=== PATIENT | male | born 1955 | race Caucasian/White ===

== ENCOUNTER 2018-02-17 08:07 | Day surgery (SDC) | payer BC ==
[2018-02-15 10:25] VITALS: BMI 30.2
[~2018-02-17 08:07] MED LIST: LACTATED RINGERS 1,000 ML IV SCH
[2018-02-17 08:40] VITALS: PULSE 51; RESP 16; TEMP 97.4
[2018-02-17] MEDS ORDERED: LIDOCAINE 1% 20 ML VIAL (10MG/ML) FOR IV START INTRADERMA ONE (08:42)
[2018-02-17] MEDS ORDERED: PROPOFOL 10 MG/ML 20 ML VIAL IV ONE (08:45)
--- NOTE | 2018-02-17 08:50 | P.GSHP ---
History of Present Illness H&P Date: 02/17/18 Chief Complaint: History of colon polyps This is a 62-year-old male who presents today for colonoscopy. Patient has a previous history of colon polyps. He denies any significant GI complaints. Past Medical History Past Medical History: GERD/Reflux, Hyperlipidemia, Hypertension, Myocardial Infarction ([place]), Sleep Apnea/CPAP/BIPAP Additional Past Medical History / Comment(s): uses CPAP, seasonal allergies, HX OF POLYPS Last Myocardial Infarction Date:: 2012 History of Any Multi-Drug Resistant Organisms: None Reported Past Surgical History: Coronary Bypass/CABG, Heart Catheterization Additional Past Surgical History / Comment(s): single bypass, valve replacement Past Anesthesia/Blood Transfusion Reactions: No Reported Reaction Smoking Status: Former smoker - Past Family History Brother(s) Family Medical History: Cancer Additional Family Medical History / Comment(s): LUNG Mother Family Medical History: No Reported History Medications and Allergies Home Medications Medication Instructions Recorded Confirmed Type Aspirin 162 mg PO DAILY 12/26/14 02/15/18 History Atorvastatin [Lipitor] 40 mg PO DAILY 12/26/14 02/15/18 History Citalopram Hydrobromide [CeleXA] 20 mg PO DAILY 12/26/14 02/15/18 History Famotidine [Pepcid] 40 mg PO HS 12/26/14 02/15/18 History Vitamin B Complex 1 each PO WE 12/26/14 02/15/18 History Amlodipine 0.5 tab PO QAM 02/15/18 History Folic Acid 1 mg PO DAILY 02/15/18 02/15/18 History Inhaler 2 puff INHALATION Q6H PRN 02/15/18 02/17/18 History Losartan [Cozaar] 50 mg PO HS 02/15/18 02/15/18 History Allergies Allergy/AdvReac Type Severity Reaction Status Date / Time No Known Allergies Allergy Verified 02/17/18 08:33 Surgical - Exam Vital Signs Temp Pulse Resp BP Pulse Ox 97.4 F L 51 L 16 131/77 95 02/17/18 08:38 02/17/18 08:38 02/17/18 08:38 02/17/18 08:38 02/17/18 08:38 - General well developed, no distress - Eyes PERRL - ENT normal pinna - Neck no masses - Respiratory normal expansion - Cardiovascular Rhythm: regular - Abdomen Abdomen: soft, non tender Assessment and Plan Assessment: History of colon polyps. We'll perform colonoscopy.
--- NOTE | 2018-02-17 09:17 | P.OP ---
Date of Procedure: 02/17/18 Preoperative Diagnosis: History of colon polyps Postoperative Diagnosis: Diverticulosis Left colon polyp Procedure(s) Performed: Colonoscopy Anesthesia: MAC Surgeon: Allen Mohan Pathology: other (Colon polyp) Condition: stable Disposition: PACU Description of Procedure: The patient's placed on the endoscopy table in the lateral position. He received IV sedation. Digital rectal exam was performed which revealed no abnormalities. The prostate was symmetric without nodules. The flexible colonoscope was then placed patient anus and passed throughout the entire colon. The ileocecal valve was visualized. The cecum, ascending and transverse colon appeared normal. In the descending colon there was diverticulosis noted. There was also a polyp seen this was removed with the snare. The sigmoid colon contained extensive diverticular changes. The scope was then brought back the rectum and this appeared normal. Scope was withdrawn for patient.
[2018-02-17 09:33] VITALS: BP 138/78
== END 2018-02-17 10:16 | disposition home or self-care (01) ==
LOC: ORWHC2ENDO 08:07
PROVIDERS: ATTEND Surgery
DX: Z12.11 Encounter for screening for malignant neoplasm of colon (principal); D12.3 Benign neoplasm of transverse colon; K57.30 Diverticulosis of large intestine without perforation or abscess without bleeding; Z86.010 Personal history of colon polyps; K21.9 Gastro-esophageal reflux disease without esophagitis; E78.5 Hyperlipidemia, unspecified; I10 Essential (primary) hypertension; I25.2 Old myocardial infarction; G47.33 Obstructive sleep apnea (adult) (pediatric); Z99.89 Dependence on other enabling machines and devices; Z95.1 Presence of aortocoronary bypass graft; Z95.2 Presence of prosthetic heart valve; Z87.891 Personal history of nicotine dependence; Z79.82 Long term (current) use of aspirin; Z79.899 Other long term (current) drug therapy
CPT/HCPCS: 88305; 45385; J2704

== ENCOUNTER 2019-08-16 10:00 | Day surgery (SDC) | payer BC ==
[2019-08-14 13:28] VITALS: BMI 30.4
[~2019-08-16 10:00] MED LIST changes: +ALPRAZolam 0.25 MG TAB PO PRN; +ASPIRIN 325 MG TAB PO STA; -LACTATED RINGERS 1,000 ML IV SCH; +SODIUM CHLORIDE 0.9% 1,000 ML in EMPTY BAG 1 BAG IV ONE
[2019-08-16] MEDS ORDERED: SODIUM CHLORIDE 0.9% 1,000 ML IV ONE (10:20)
[2019-08-16 10:31] LABS: Basophils # (A) 0.1 k/uL (0-0.2); Basophils % (A) 1 %; Eosinophils # (A) 0.2 k/uL (0-0.7); Eosinophils % (A) 5 %; HCT 43.3 % (39.0-53.0); HGB 14.7 gm/dL (13.0-17.5); Lymphocytes # (A) 1.4 k/uL (1.0-4.8); Lymphocytes % (A) 27 %; MCH 31.5 pg (25.0-35.0); MCV 92.9 fL (80.0-100.0); Mean Platelet Volume 7.2; Monocytes # (A) 0.3 k/uL (0-1.0); Monocytes % (A) 7 %; Neutrophils # (A) 3.2 k/uL (1.3-7.7); Neutrophils % (A) 59 %; Platelet Count 169 k/uL (150-450); RBC 4.66 m/uL (4.30-5.90); RDW 13.3 % (11.5-15.5); WBC 5.3 k/uL (3.8-10.6)
[2019-08-16 10:39] LABS: African American GFR (CKD) >90 (>60 ml/min/1.73 sqM); Anion Gap 1 mmol/L; Blood Urea Nitrogen 19 mg/dL (9-20); Calcium 9.4 mg/dL (8.4-10.2); Carbon Dioxide 32 mmol/L (22-30); Chloride 105 mmol/L (98-107); Glucose 88 mg/dL (74-99); Non-African American GFR(CKD) >90 (>60 ml/min/1.73 sqM); Potassium 4.9 mmol/L (3.5-5.1); Sodium 138 mmol/L (137-145)
[2019-08-16] MEDS ORDERED: MIDAZOLAM 2 MG/2 ML VIAL IV ONE ×2 (13:14→14:26)
[2019-08-16] MEDS: LIDOCAINE 1% INJ 10MG/ML (20 ML MDV) SQ ONE ×2 (13:22→13:35)
[2019-08-16] MEDS ORDERED: VERAPAMIL SYRINGE (5 MG/10 ML) INTRAARTER ONE (13:36)
[2019-08-16] MEDS ORDERED: HEPARIN SODIUM 1,000 UN/ML (10ML VL) IV ONE (13:37)
[2019-08-16] MEDS ORDERED: CLOPIDOGREL 75 MG TAB PO ONE (14:50)
[2019-08-16] MEDS ORDERED: IOPAMIDOL-250 100ML BTL INTRAARTER ONE (14:50)
[2019-08-16] MEDS ORDERED: fentaNYL (PF) 50 MCG/ML 2 ML AMP IV ONE (14:52)
[2019-08-16] MEDS ORDERED: SODIUM CHLORIDE 0.9% 1,000 ML in EMPTY BAG 1 BAG IV SCH (15:00)
[2019-08-16] MEDS ORDERED: CHOLECALCIFEROL 1,000 UNIT TAB PO SCH (15:00)
--- NOTE | 2019-08-16 15:07 | P.PCN ---
Date of Procedure: 08/16/19 Operative Findings: PERCUTANEOUS PERIPHERAL ARTERIAL INTERVENTION Performing physician Mariano Shane M.D. Procedure performed 1. Selective bilateral common iliac arteries angiogram 2. Intravascular ultrasound (IVUS) of the left common iliac artery 3. Successful kissing stents of the right and left common iliac arteries using 9.0 x 29 mm Omnilink balloon expandable stent with an excellent angiographic results Indication This is a 63-year-old gentleman who sees Dr. Parks in the office on regular basis with hypertension and dyslipidemia who was experiencing left leg intermittent claudication. He underwent an abdominal aortogram and bilateral lower extremities runoff and that revealed intermediate to severe disease involving the left common iliac artery as well as critical disease involving the left common femoral artery and also involving the take off of the SFA and profunda. The patient was advised to undergo a [employer] CH[employer]MAN OF [employer] of the left common iliac artery and subsequently endarterectomy of the left common femoral artery with profunda and SFA. Approach Right common femoral artery Right radial artery Complication None Level of sedation Moderate with sedation length of 88 minutes Procedure description After obtaining an informed consent the patient was brought to the cardiac garden labourer. The right common femoral artery was cannulated using micropuncture technique, the micropuncture wire passed easily then I placed a 23 cm 6-Mosotho sheath at the right common femoral artery and the sheath was advanced all the way to the hospital. I did selective left common iliac artery with injection through the sheath at the right groin and that revealed intermediate to severe disease. At that point I decided to do intravascular ultrasound of the left common iliac artery to assess the need for revascularization. At that point I axis the right radial artery and I placed 119 cm sheath at the right radial artery and the sheath was advanced all the way to the distal aorta just above the bifurcation into right and left common iliac arteries. I wire the left common iliac artery using 014 hydro-ST wire. Then I did in travascular ultrasound which revealed an area stenosis of the left common iliac artery of about 72%. Because of that I decided to stent that lesion. At that point I did exchange my 04 wire into an 035 stiff wire using an 035 CXR catheter. After that I did balloon angioplasty of the left common iliac artery using 6 mm balloon. Subsequently I deployed 2 stents in the right and left common iliac arteries with a kissing technique where I deployed 29.0 x 29 mm Omnilink balloon expandable stent were both stents were positioned under fluoroscopy guidance and deployed under fluoroscopy guidance. Both stents were dilated using 10 mm balloon. The final angiogram showed an excellent angiographic results and the procedure at that point was completed without any complication After that I did exchange my right groin 23 cm sheath into an 11 cm sheath using 035 glide advantage wire. And then I did pull the right radial sheath and I placed a TR band. The procedure was completed without any complication. Postprocedure management 1. Dual antiplatelet therapy 2. Risk factors modifications 3. Follow-up with the patient
[2019-08-16] MEDS ORDERED: ATROPINE SULFATE 0.1 MG/ML 10ML SYRINGE ONE (17:48)
[2019-08-16] MEDS: ACETAMINOPHEN TAB 325 MG TAB PO PRN (17:51)
[2019-08-16] MEDS ORDERED: LOSARTAN 50 MG TAB PO SCH (21:00)
[2019-08-16] MEDS ORDERED: ATORVASTATIN 20 MG TAB PO SCH (21:00)
[2019-08-16] MEDS ORDERED: CITALOPRAM HYDROBROMIDE 20 MG TAB PO SCH (21:00)
[2019-08-17] MEDS: ACETAMINOPHEN TAB 325 MG TAB PO PRN (00:47)
[2019-08-17 04:03] VITALS: RESP 17; TEMP 97.5
--- NOTE | 2019-08-17 06:23 | IR ---
EXAMINATION TYPE: IR stent intravas non coronary DATE OF EXAM: 08/16/2019 CLINICAL HISTORY: Peripheral vascular disease TECHNIQUE: Fluoroscopy. COMPARISON: None. FINDINGS: Fluoroscopic guidance was provided during iliac artery angiogram with stent insertion proc edure performed by Dr. Melendez. A total of 24.9 minute of fluoroscopic time was utilized during the pro cedure and multiple cine runs are acquired. Please refer to procedure note for further details as I w as not present nor performed procedure. IMPRESSION: As Above.
[2019-08-17 07:27] LABS: Basophils # (A) 0.1 k/uL (0-0.2); Basophils % (A) 1 %; Eosinophils # (A) 0.2 k/uL (0-0.7); Eosinophils % (A) 4 %; HCT 42.3 % (39.0-53.0); HGB 13.7 gm/dL (13.0-17.5); Lymphocytes # (A) 1.1 k/uL (1.0-4.8); Lymphocytes % (A) 21 %; MCH 30.5 pg (25.0-35.0); MCHC 32.3 g/dL (31.0-37.0); MCV 94.4 fL (80.0-100.0); Mean Platelet Volume 7.4; Monocytes # (A) 0.4 k/uL (0-1.0); Monocytes % (A) 7 %; Neutrophils # (A) 3.4 k/uL (1.3-7.7); Neutrophils % (A) 64 %; Platelet Count 147 k/uL (150-450); RBC 4.49 m/uL (4.30-5.90); RDW 13.1 % (11.5-15.5); WBC 5.3 k/uL (3.8-10.6)
[2019-08-17 07:45] LABS: African American GFR (CKD) >90 (>60 ml/min/1.73 sqM); Anion Gap 2 mmol/L; Blood Urea Nitrogen 14 mg/dL (9-20); Calcium 8.9 mg/dL (8.4-10.2); Carbon Dioxide 28 mmol/L (22-30); Chloride 107 mmol/L (98-107); Glucose 81 mg/dL (74-99); Non-African American GFR(CKD) >90 (>60 ml/min/1.73 sqM); Sodium 137 mmol/L (137-145)
[2019-08-17 08:06] LABS: Potassium 4.3 mmol/L (3.5-5.1)
--- NOTE | 2019-08-17 08:46 | P.DS ---
Providers Date of admission: August 152019 Attending physician: Mariano Melendez Primary care physician: [facility] Course: This is a very pleasant 63-year-old gentleman who underwent yesterday successful kissing stents of the right and left common iliac arteries with an excellent angiographic results and without any complication from right radial and right groin approach. The patient was seen and examined this morning. The right groin is soft and non tender and without any bruises. The right radial artery site is good as well was good pulse. He is going to be discharged home on dual antiplatelet therapy and I will follow-up with the patient next week in the office Plan - Discharge Summary Discharge Rx Participant: No New Discharge Prescriptions: Continue Citalopram Hydrobromide [CeleXA] 20 mg PO HS Atorvastatin [Lipitor] 20 mg PO HS Aspirin 81 mg PO DAILY Folic Acid 1 mg PO DAILY Irbesartan [Avapro] 150 mg PO HS amLODIPine [Norvasc] 2.5 mg PO DAILY Clopidogrel [Plavix] 75 mg PO DAILY Cholecalciferol [Vitamin D3 (25 Mcg = 1000 Iu)] 2,000 unit PO WE Discharge Medication List Aspirin 81 mg PO DAILY 12/26/14 [History] Atorvastatin [Lipitor] 20 mg PO HS 12/26/14 [History] Citalopram Hydrobromide [CeleXA] 20 mg PO HS 12/26/14 [History] Folic Acid 1 mg PO DAILY 02/15/18 [History] Cholecalciferol [Vitamin D3 (25 Mcg = 1000 Iu)] 2,000 unit PO WE 08/14/19 [History] Clopidogrel [Plavix] 75 mg PO DAILY 08/14/19 [History] Irbesartan [Avapro] 150 mg PO HS 08/14/19 [History] amLODIPine [Norvasc] 2.5 mg PO DAILY 08/14/19 [History] Follow up Appointment(s)/Referral(s): Mariano Melendez MD [STAFF PHYSICIAN] - 1 Week
[2019-08-17] MEDS ORDERED: LOSARTAN POTASSIUM PO SCH (09:00)
[2019-08-17] MEDS ORDERED: ASPIRIN 81 MG PO SCH (09:00)
[2019-08-17] MEDS ORDERED: CLOPIDOGREL 75 MG TAB PO SCH (09:00)
[2019-08-17] MEDS ORDERED: amLODIPine 2.5 MG TAB PO SCH (09:00)
[2019-08-17] MEDS ORDERED: FOLIC ACID 1 MG TAB PO SCH (09:00)
[2019-08-17 09:13] VITALS: BP 132/70; PULSE 53
== END 2019-08-17 10:26 ==
LOC: CATHCVL 10:00 → 3SCARD 14:49 → CATHCVL 08-17 10:26
PROVIDERS: ATTEND Internal Medicine Interventional Cardiology
DX: I70.213 Atherosclerosis of native arteries of extremities with intermittent claudication, bilateral legs (principal); I25.10 Atherosclerotic heart disease of native coronary artery without angina pectoris; I10 Essential (primary) hypertension; F17.210 Nicotine dependence, cigarettes, uncomplicated; E78.5 Hyperlipidemia, unspecified; I25.2 Old myocardial infarction; Z95.5 Presence of coronary angioplasty implant and graft; Z95.2 Presence of prosthetic heart valve; Z79.02 Long term (current) use of antithrombotics/antiplatelets; Z79.82 Long term (current) use of aspirin; Z79.899 Other long term (current) drug therapy
CPT/HCPCS: 36200; 37221; 37252; 80048 ×2; 85025 ×2; 87635; C1725 ×2; C1876; C1769 ×7; C1894 ×2; C1753; C1887; J2250; J2001; J3010; J1644; Q9966

== ENCOUNTER 2022-03-23 13:03 | Day surgery (SDC) | payer BC, MEDICARE, OTHER ==
[~2022-03-23 13:03] MED LIST changes: -ALPRAZolam 0.25 MG TAB PO PRN; -ASPIRIN 325 MG TAB PO STA; +LACTATED RINGERS 1,000 ML IV SCH; +LIDOCAINE 1% (10MG/ML) FOR IV START INTRADERMA PRN; -SODIUM CHLORIDE 0.9% 1,000 ML in EMPTY BAG 1 BAG IV ONE
[2022-03-23 13:40] VITALS: RESP 16; TEMP 97.4
[2022-03-23] MEDS ORDERED: PROPOFOL 10 MG/ML 20 ML VIAL IV ONE (13:40)
[2022-03-23] MEDS ORDERED: LIDOCAINE 2% INJ 20 MG/ML (2 ML VIAL) ONE (13:40)
--- NOTE | 2022-03-23 14:11 | P.OP ---
Date of Procedure: 03/23/22 Preoperative Diagnosis: History of colon polyps Postoperative Diagnosis: Extensive diverticular disease of sigmoid and left colon Procedure(s) Performed: Colonoscopy Anesthesia: MAC Surgeon: Allen Mohan Pathology: none sent Condition: stable Disposition: PACU Description of Procedure: The patient's placed on the endoscopy table in the lateral position. He received IV sedation. Digital rectal exam performed. This revealed no abnormalities. The prostate was symmetrical without nodules. Flexible colonoscope was then placed patient anus and passed throughout the entire colon. The ileocecal valve was visualized. The cecum, ascending and transverse colon appeared normal. In the descending and sigmoid colon there is extensive diverticular disease. The scope was then brought back the rectum this appeared normal. Scope withdrawn for patient.
--- NOTE | 2022-03-23 14:12 | P.GSHP ---
History of Present Illness H&P Date: 03/23/22 Chief Complaint: History of colon polyps This a 58-year-old male with previous history of colon polyps. Patient presents today for colonoscopy Past Medical History Past Medical History: Coronary Artery Disease (CAD), Deep Vein Thrombosis (DVT), GERD/Reflux, Hyperlipidemia, Hypertension, Myocardial Infarction ([place]), Sleep Apnea/CPAP/BIPAP Additional Past Medical History / Comment(s): Obstructive sleep apnea uses CPAP, seasonal allergies, HX OF POLYPS, arthritis right shoulder, ringing left ear., Aortic valve replacement, blood clot in lungs 2 years ago. general arthritis Last Myocardial Infarction Date:: 2012 History of Any Multi-Drug Resistant Organisms: None Reported Past Surgical History: Coronary Bypass/CABG, Heart Catheterization Additional Past Surgical History / Comment(s): single bypass, valve replacement- state cow valve, states aneurysm repair and heart surgery done at [facility]. stent in his left leg for circulation issues since 16yr old. had a knot behind his knee. Past Anesthesia/Blood Transfusion Reactions: No Reported Reaction Additional Past Anesthesia/Blood Transfusion Reaction / Comment(s): no blood tranfusions Smoking Status: Former smoker - Past Family History Brother(s) Family Medical History: Cancer Additional Family Medical History / Comment(s): LUNG Father Additional Family Medical History / Comment(s): aneurysm in esophagus Mother Family Medical History: No Reported History Medications and Allergies Home Medications Medication Instructions Recorded Confirmed Type Atorvastatin [Lipitor] 40 mg PO HS 12/26/14 03/23/22 History Citalopram Hydrobromide [CeleXA] 20 mg PO HS 12/26/14 03/23/22 History Folic Acid 1 mg PO DAILY 02/15/18 03/23/22 History Clopidogrel [Plavix] 75 mg PO DAILY 08/14/19 03/23/22 History Irbesartan [Avapro] 150 mg PO DAILY 08/14/19 03/23/22 History Ergocalciferol [Vitamin D2 (1250 1,250 mcg PO WE 04/28/21 03/23/22 History Mcg = 46464 Iu)] Aspirin 162 mg PO DAILY 03/20/22 03/23/22 History Allergies Allergy/AdvReac Type Severity Reaction Status Date / Time hops Allergy Unknown congestion Verified 03/23/22 13:23 from beer Surgical - Exam Vital Signs Temp Pulse Resp BP Pulse Ox 97.4 F L 55 L 16 145/78 94 L 03/23/22 13:18 03/23/22 13:18 03/23/22 13:18 03/23/22 13:18 03/23/22 13:18 - General well developed, well nourished, no distress - Eyes PERRL - ENT normal pinna - Neck no masses - Respiratory normal expansion - Cardiovascular Rhythm: regular - Abdomen Abdomen: soft, non tender Assessment and Plan Assessment: History of colon polyps. We'll perform colonoscopy
[2022-03-23 14:36] VITALS: BP 132/86; PULSE 52
== END 2022-03-23 14:53 | disposition home or self-care (01) ==
LOC: ORWHC2ENDO 13:03
PROVIDERS: ATTEND Surgery
DX: Z12.11 Encounter for screening for malignant neoplasm of colon (principal); K57.30 Diverticulosis of large intestine without perforation or abscess without bleeding; I25.10 Atherosclerotic heart disease of native coronary artery without angina pectoris; K21.9 Gastro-esophageal reflux disease without esophagitis; I10 Essential (primary) hypertension; E78.5 Hyperlipidemia, unspecified; I25.2 Old myocardial infarction; F12.90 Cannabis use, unspecified, uncomplicated; I73.9 Peripheral vascular disease, unspecified; G47.33 Obstructive sleep apnea (adult) (pediatric); M19.90 Unspecified osteoarthritis, unspecified site; Z86.010 Personal history of colon polyps; Z95.1 Presence of aortocoronary bypass graft; Z95.5 Presence of coronary angioplasty implant and graft; Z87.891 Personal history of nicotine dependence; Z80.1 Family history of malignant neoplasm of trachea, bronchus and lung; Z82.49 Family history of ischemic heart disease and other diseases of the circulatory system; Z79.02 Long term (current) use of antithrombotics/antiplatelets; Z79.899 Other long term (current) drug therapy; Z79.82 Long term (current) use of aspirin; Z91.018 Allergy to other foods; Z99.89 Dependence on other enabling machines and devices; Z86.718 Personal history of other venous thrombosis and embolism
CPT/HCPCS: J2704; J2001; G0105; 45378

== ENCOUNTER 2023-02-17 18:26 | Emergency (ER) | payer MEDICARE ==
[2023-02-17 19:04] VITALS: BP 137/87; RESP 18; TEMP 98.5
--- NOTE | 2023-02-17 20:19 | US ---
EXAMINATION TYPE: US venous doppler duplex LE LT DATE OF EXAM: 02/17/2023 7:41 PM COMPARISON: 08/11/22 CLINICAL INDICATION: Male, 67 years old with history of pain/swelling; left givens pain x 3 weeks. Hx o f DVT and PE. On blood thinners SIDE PERFORMED: Left TECHNIQUE: The lower extremity deep venous system is examined utilizing real time linear array sonog olga with graded compression, doppler sonography and color-flow sonography. VESSELS IMAGED: Common Femoral Vein Deep Femoral Vein Greater Saphenous Vein * Femoral Vein Popliteal Vein Small Saphenous Vein * Proximal Calf Veins (* superficial vessels) Left Leg: There is partial comp. in the prox popliteal vein. This is the same area as the previous c lot. The rest appears negative for DVT IMPRESSION: 1. Deep venous thrombosis proximal popliteal vein.
--- NOTE | 2023-02-17 22:53 | ED ---
General Adult HPI - General Chief complaint: Extremity Problem,Nontraumatic Stated complaint: L Leg Pain, History of Blood Clots Time Seen by Provider: 02/17/23 22:18 Source: patient Mode of arrival: ambulatory - History of Present Illness Initial comments: Dictation was produced using [employer] dictation software. please excuse any grammatical, word or spelling errors. Chief Complaint: 67-year-old male presents with right anterior lower left leg pain History of Present Illness: 67-year-old male for the last 2 days he's been having left lower givens pain. States it hurts when he walks and moves certain direction. He is currently on glucose for left popliteal DVT. Patient was climbing a ladder perhaps he may have banged his leg on the ladder. Denies any chest pain or shortness of breath. The ROS documented in this emergency department record has been reviewed and confirmed by me. Those systems with pertinent positive or negative responses have been documented in the HPI. All other systems are other negative and/or noncontributory. - Related Data Home Medications Medication Instructions Recorded Confirmed Atorvastatin [Lipitor] 40 mg PO HS 12/26/14 08/11/22 Citalopram Hydrobromide [CeleXA] 20 mg PO HS 12/26/14 08/11/22 Folic Acid 1 mg PO DAILY 02/15/18 08/11/22 Clopidogrel [Plavix] 75 mg PO HS 08/14/19 08/11/22 Irbesartan [Avapro] 150 mg PO DAILY 08/14/19 08/11/22 Ergocalciferol [Vitamin D2 (1250 1,250 mcg PO WE 04/28/21 08/11/22 Mcg = 94719 Iu)] Previous Rx's Medication Instructions Recorded Apixaban [Eliquis Starter Pack 5 - 10 mg PO DIRECTED 30 Days 08/13/22 (for VTE)] #1 each Losartan [Cozaar] 50 mg PO DAILY #30 tab 08/13/22 Pantoprazole [Protonix] 40 mg PO DAILY #30 tab 08/13/22 Allergies Allergy/AdvReac Type Severity Reaction Status Date / Time hops Allergy Unknown congestion Verified 02/17/23 18:56 from beer Review of Systems ROS Statement: Those systems with pertinent positive or pertinent negative responses have been documented in the HPI. ROS Other: All systems not noted in ROS Statement are negative. Past Medical History Past Medical History: Coronary Artery Disease (CAD), Deep Vein Thrombosis (DVT), GERD/Reflux, Hyperlipidemia, Hypertension, Myocardial Infarction ([place]), Sleep Apnea/CPAP/BIPAP Additional Past Medical History / Comment(s): Obstructive sleep apnea uses CPAP, seasonal allergies, HX OF POLYPS, arthritis right shoulder, ringing left ear., Aortic valve replacement, blood clot in lungs 2 years ago. general arthritis Last Myocardial Infarction Date:: 2012 History of Any Multi-Drug Resistant Organisms: None Reported Past Surgical History: Coronary Bypass/CABG, Heart Catheterization Additional Past Surgical History / Comment(s): single bypass, valve replacement- state cow valve, states aneurysm repair and heart surgery done at [facility]. stent in his left leg for circulation issues since 16yr old. had a knot behind his knee. Past Anesthesia/Blood Transfusion Reactions: No Reported Reaction Additional Past Anesthesia/Blood Transfusion Reaction / Comment(s): no blood tranfusions Past Psychological History: Anxiety Smoking Status: Current every day smoker Past Alcohol Use History: Occasional Past Drug Use History: None Reported - Past Family History Brother(s) Family Medical History: Cancer Additional Family Medical History / Comment(s): LUNG Father Additional Family Medical History / Comment(s): aneurysm in esophagus Mother Family Medical History: No Reported History Course Vital Signs 02/17/23 18:51 Temperature 98.5 F Pulse Rate 59 L Respiratory 18 Rate Blood Pressure 137/87 O2 Sat by Pulse 95 Oximetry Medical Decision Making - Medical Decision Making PHYSICAL EXAM: General Impression: Alert and oriented x3, not in acute distress HEENT: Normocephalic atraumatic, extra-ocular movements intact, pupils equal and reactive to light bilaterally, mucous membranes moist. Cardiovascular: Heart regular rate and rhythm Chest: Able to complete full sentences, no retractions, no tachypnea Abdomen: abdomen soft, non-tender, non-distended, no organomegaly Musculoskeletal: Pulses present and equal in all extremities, no peripheral edema Motor: no focal deficits noted Neurological: CN II-XII grossly intact, no focal motor or sensory deficits noted Skin: Intact with no visualized rashes Psych: Normal affect and mood Was pt. sent in by a medical professional or institution (, PA, MOVEMENT ASSEMBLER, urgent care, hospital, or half-way...) When possible be specific @ -No Did you speak to anyone other than the patient for history (EMS, parent, family, police, friend...)? What history was obtained from this source @ -No Did you review nursing and triage notes (agree or disagree)? Why? @ -I reviewed and agree with nursing and triage notes Were old charts reviewed (outside hosp., previous admission, EMS record, old EKG, old radiological studies, urgent care reports/EKG's, half-way records)? Report findings @ -No old charts were reviewed Differential Diagnosis (chest pain, altered mental status, abdominal pain women, abdominal pain men, vaginal bleeding, musculoskeletal, weakness, fever, dyspnea, syncope, headache, dizziness, GI bleed, back pain, seizure, CVA, palpatations, mental health)? @ -not applicable EKG interpreted by me (3pts min.). @ -None done X-rays interpreted by me (1pt min.). @ -X-ray of the left leg shows no injuries or fractures or acute processes CT interpreted by me (1pt min.). @ -None done U/S interpreted by me (1pt. min.). @ -none interpreted by me What testing was considered but not performed or refused? (CT, X-rays, U/S, labs)? Why? @ -None What meds were considered but not given or refused? Why? @ -None Did you discuss the management of the patient with other professionals (professionals i.e. , PA, MOVEMENT ASSEMBLER, lab, RT, psych nurse, social worker clinical, police justice, teacher, public safety officer, community case manager)? Give summary @ -No Was smoking cessation discussed for >3mins.? @ -No Was critical care preformed (if so, how long)? @ -No Were there social determinants of health that impacted care today? How? (Homelessness, low income, unemployed, alcoholism, drug addiction, transportation, low edu. Level, literacy, decrease access to med. care, long term, rehab)? @ -No Was there de-escalation of care discussed even if they declined (Discuss DNR or withdrawal of care, Hospice)? DNR status @ -No What co-morbidities impacted this encounter? (DM, HTN, Smoking, COPD, CAD, Cancer, CVA, ARF, Chemo, Hep., AIDS, mental health diagnosis, sleep apnea, morbid obesity)? @ -None Was patient admitted / discharged? Hospital course, mention meds given and route, prescriptions, significant lab abnormalities, going to OR and other pertinent info. @ -67-year-old male presents with left lower anterior givens pain. Vital signs stable. Patient is well-appearing. Symptoms and physical examination suggest musculoskeletal left lower givens pain. He likely contuse it. X-ray and ultrasound negative. Patient will be discharged. Advised follow-up with primary care doctor. Undiagnosed new problem with uncertain prognosis? @ -No Drug Therapy requiring intensive monitoring for toxicity (Heparin, Nitro, Insulin, Cardizem)? @ -No Were any procedures done? @ -No Diagnosis/symptom? Acute, or Chronic, or Acute on Chronic? Uncomplicated (without systemic symptoms) or Complicated (systemic symptoms)? @ -Leg contusion Side effects of treatment? @ -No Exacerbation, Progression, or Severe Exacerbation? @ -No Poses a threat to life or bodily function? How? (Chest pain, [place], OR, pneumonia, PE, COPD, DKA, ARF, appy, cholecystitis, CVA, Diverticulitis, Homicidal, Suicidal, threat to staff... and all critical care pts) @ -No Disposition Clinical Impression: Contusion of leg Disposition: HOME SELF-CARE Condition: Good Instructions (If sedation given, give patient instructions): Contusion in Adults (ED) Is patient prescribed a controlled substance at d/c from ED?: No Referrals: Danna Avery DO [Primary Care Provider] - 1-2 days Time of Disposition: 22:53
[2023-02-17 23:28] VITALS: PULSE 80
--- NOTE | 2023-02-17 23:32 | XR ---
EXAM: XR Left Tibia and Fibula, 2 Views CLINICAL HISTORY: ITS.REASON XR Reason: givens pain TECHNIQUE: Frontal and lateral views of the left tibia and fibula. COMPARISON: No relevant prior studies available. FINDINGS: Bones/joints: Suspected fracture at the base of the fifth metatarsal. Correlate with foot radiographs. Osseous demineralization. No acute fracture or dislocation of the tibia or fibula. Soft tissues: Unremarkable. No radiopaque foreign body. Vasculature: Vascular calcifications. IMPRESSION: 1. No acute fracture or dislocation of the tibia or fibula. 2. Suspected fracture at the base of the fifth metatarsal. Correlate with foot radiographs.
== END 2023-02-17 23:02 | disposition home or self-care (01) ==
LOC: EC 18:26
DX: S80.12XA Contusion of left lower leg, initial encounter (principal); I10 Essential (primary) hypertension; I25.10 Atherosclerotic heart disease of native coronary artery without angina pectoris; I25.2 Old myocardial infarction; E78.5 Hyperlipidemia, unspecified; K21.9 Gastro-esophageal reflux disease without esophagitis; F41.9 Anxiety disorder, unspecified; F17.200 Nicotine dependence, unspecified, uncomplicated; Z79.02 Long term (current) use of antithrombotics/antiplatelets; Z79.899 Other long term (current) drug therapy; Z91.09 Other allergy status, other than to drugs and biological substances; Z95.1 Presence of aortocoronary bypass graft; Z86.718 Personal history of other venous thrombosis and embolism; X58.XXXA Exposure to other specified factors, initial encounter
CPT/HCPCS: 99284

== ENCOUNTER 2023-05-13 05:52 | Day surgery (SDC) | payer MEDICARE ==
[~2023-05-13 05:52] MED LIST changes: +ALPRAZolam 0.25 MG TAB PO PRN; +ALPRAZolam 0.5 MG TAB PO PRN; +ASPIRIN 325 MG TAB PO STA; +ATORVASTATIN 80 MG TAB PO STA; +HEPARIN SODIUM,PORCINE (1 ML) 2,500 UNIT in SODIUM CHLORIDE 0.9% 250 ML IRRIGATION PRN; +HEPARIN SODIUM,PORCINE 10,000 UNIT in SODIUM CHLORIDE 0.9% 1,000 ML IRRIGATION PRN; -LACTATED RINGERS 1,000 ML IV SCH; -LIDOCAINE 1% (10MG/ML) FOR IV START INTRADERMA PRN; +NITROGLYCERIN SL TABS 0.4 MG TAB SUBLINGUAL PRN; +SODIUM CHLORIDE 0.9% 1,000 ML in EMPTY BAG 1 BAG IV SCH
[2023-05-13] MEDS ORDERED: SODIUM CHLORIDE 0.9% 1,000 ML IV ONE ×2 (06:13→07:15)
[2023-05-13 06:34] LABS: Basophils % (A) 1 %; Eosinophils # (A) 0.3 k/uL (0-0.7); Eosinophils % (A) 5 %; HCT 44.4 % (39.0-53.0); Lymphocytes # (A) 2.1 k/uL (1.0-4.8); Lymphocytes % (A) 36 %; MCH 30.4 pg (25.0-35.0); MCHC 33.7 g/dL (31.0-37.0); MCV 90.1 fL (80.0-100.0); Mean Platelet Volume 7.9; Monocytes # (A) 0.4 k/uL (0-1.0); Monocytes % (A) 6 %; Neutrophils # (A) 2.8 k/uL (1.3-7.7); Neutrophils % (A) 49 %; Platelet Count 191 k/uL (150-450); RBC 4.93 m/uL (4.30-5.90); RDW 13.3 % (11.5-15.5); WBC 5.7 k/uL (3.8-10.6)
[2023-05-13 06:40] VITALS: RESP 16; TEMP 97.6
[2023-05-13 06:56] LABS: African American GFR (CKD) >90 (>60 ml/min/1.73 sqM); Anion Gap 5 mmol/L; Blood Urea Nitrogen 22 mg/dL (9-20); Calcium 9.7 mg/dL (8.4-10.2); Carbon Dioxide 29 mmol/L (22-30); Chloride 106 mmol/L (98-107); Glucose 101 mg/dL (74-99); Non-African American GFR(CKD) 85 (>60 ml/min/1.73 sqM); Potassium 4.8 mmol/L (3.5-5.1); Sodium 140 mmol/L (137-145)
[2023-05-13] MEDS ORDERED: fentaNYL (PF) 50 MCG/ML 2 ML AMP ONE (07:16)
[2023-05-13] MEDS ORDERED: MIDAZOLAM 2 MG/2 ML VIAL IVP ONE ×2 (07:29→07:31)
[2023-05-13] MEDS ORDERED: fentaNYL (PF) 50 MCG/1 ML VIAL IVP ONE ×2 (07:30→07:32)
--- NOTE | 2023-05-13 07:46 | P.PCN ---
Date of Procedure: 05/13/23 Operative Findings: TRANSESOPHAGEAL ECHOCARDIOGRAM SECURITY ENGINEER: NATHANIEL PEREZ MD, RPVI INDICATION: Aortic stenosis SEDATION: Conscious sedation COMPLICATION: None LEVEL OF SEDATION Moderate to sedation length of 16 minutes PROCEDURE DESCRIPTION: After obtaining an informed consent, the patient was brought to transesophageal echocardiogram room. Pulse oximetry and heart monitors were attached to the patient. The patient throat was sprayed using lidocaine. The patient was turned into left lateral position. After that a bite guard was placed. After an appropriate conscious sedation was initiated, the transesophageal echocardiogram was advanced through a bite guard into the mid esophagus. A 2-D echocardiogram images, color Doppler images, continuous wave images, pulse-wave images, of various cardiac structure were performed. After that the transesophageal echocardiogram probe was advanced into the stomach and fixed to obtain transgastric view was. The probe was brought into the mid esophagus. Inter-atrial septum was interrogated using 2D images, color Doppler images, and then contrast study. After that transesophageal echocardiogram was withdrawn out and upon withdrawing the descending thoracic aorta all the way up to the arch was evaluated. CONCLUSION: 1. Severe stenosis of bioprosthetic aortic valve with a mean gradient of 40 mmHg and peak gradient of 67 mmHg. The valve is very degenerative and calcified. No aortic insufficiency seen 2. Normal LV systolic function with an EF between 55-60% 3. Mild mitral regurgitation 4. Hyperdynamic interatrial septum with possible small patent foramen ovale 5. Poorly visualized tricuspid valve and pulmonic valve 6. No evidence of pericardial effusion
[2023-05-13] MEDS ORDERED: VERAPAMIL 2.5 MG/ML 2 ML AMP ONE (07:47)
[2023-05-13] MEDS ORDERED: HEPARIN SODIUM 1,000 UN/ML (10ML VL) ONE (07:47)
[2023-05-13] MEDS ORDERED: LIDOCAINE 1% INJ 10MG/ML (20 ML MDV) ONE (07:47)
[2023-05-13] MEDS ORDERED: LIDOCAINE 1% INJ 10MG/ML (5 ML VIAL-PF) SQ ONE (08:03)
[2023-05-13] MEDS ORDERED: VERAPAMIL SYRINGE (5 MG/10 ML) INTRAARTER ONE (08:04)
[2023-05-13] MEDS ORDERED: HEPARIN SODIUM 1,000 UN/ML (10ML VL) IV ONE (08:14)
[2023-05-13] MEDS ORDERED: fentaNYL (PF) 50 MCG/ML 2 ML AMP IVP ONE (08:29)
[2023-05-13] MEDS ORDERED: IOPAMIDOL-370 150ML BTL IVP ONE (08:40)
[2023-05-13] MEDS ORDERED: IOPAMIDOL-370 100ML BTL INJ ONE (08:49)
[2023-05-13] MEDS ORDERED: SODIUM CHLORIDE 0.9% 1,000 ML IV SCH (09:00)
--- NOTE | 2023-05-13 10:25 | CC ---
CARDIAC CATHETERIZATION REPORT PROCEDURE PERFORMED: Coronary angiography and subselective injection of right saphenous vein graft. PERFORMED BY: Dr. Rohini Parks. ANESTHESIA: Moderate conscious sedation time was 53 minutes. The patient was sedated prior to the procedure for a ADRIANA and I gave an additional 25 mg of fentanyl. Oxygen saturation, hemodynamics, and EKG were monitored closely. CLINICAL INFORMATION: Mr. Christian Lawler is a 67-year-old gentleman with a history of bicuspid aortic valve status post surgical valve replacement at [facility] with repair of ascending aorta performed in March 2013. Prior to that, he presented with an acute anterior OH in April of 2012 and at that time performed stenting of his LAD with a 3.5 caliber drug-eluting Resolute stents. Subsequently a month later, I performed the stenting of a PDA branch of a codominant RCA. In March of 2013, he underwent aortic valve replacement with a tissue valve #25 at [facility] with repair of ascending aorta and a single vein graft bypass to the PDA branch of RCA. He, also since then, has developed significant peripheral vascular disease requiring in 2019 a kissing balloon and stenting of right and left common iliac arteries. He is a smoker and he finally quit smoking about less than a year or so. Because of increasing symptoms of angina and objective evidence of degenerative changes in the bioprosthetic aortic valve and increasing gradient, he was advised cardiac cath and transesophageal echo. Transesophageal echo revealed that he had a severe aortic stenosis of the bioprosthetic valve with ascending aortic dilatation which is not new. Coronary angiography was performed following the transesophageal echo. PROCEDURE NOTE: Under local anesthesia and strict aseptic precautions, a 6-Persian introducer was placed in the right radial artery. I was able to do coronary angiography of the right coronary artery, but there was extreme tortuosity of the ascending aorta and also the subclavian system and he almost has a bovine arch. Because of extreme tortuosity, I could not get a catheter to advance into the left coronary artery or the vein graft. I therefore switched over to a right femoral approach. Under strict aseptic precautions and local anesthesia, 6-Persian introducer was placed in the right femoral artery. Using a right bypass diagnostic catheter, I performed selective coronary angiography of the right coronary artery. I could not find the right vein graft. I got a subselective injection and I believe the right saphenous vein graft is probably occluded, could not be visualized. A JL5 diagnostic catheter was used to perform selective coronary angiography of the left system. Following this, the sheath was taken out and Angio-Seal device used to secure hemostasis and the right radial artery. Right radial sheath was taken out and a TR band applied as per protocol with saturation of the fingers of the right hand of 94%. The patient tolerated the procedure well without complication. I am recommending evaluation by structural heart team, but most likely he will require a redo surgical aortic valve replacement with possibly a single vein graft to the circumflex. RCA graft is occluded and nenana RCA is also occluded. I discussed my thoughts in detail with the patient and also his family. CARDIAC CATHETERIZATION FINDINGS: Right Coronary Artery: This vessel is totally occluded in the proximal portion after the origin of an acute marginal branch. A #7 saphenous vein graft to the RCA also was not visualized and I am presumably occluded. Left Main Coronary Artery: This is a short patent disease-free vessel that has moderate calcification, bifurcates into LAD and circumflex. Left Anterior Descending Coronary Artery: Good caliber vessel that was stented in 2012. The stented area is patent with about a 40% narrowing. Flow is brisk. This is a drug-eluting stent. Stenosis is about 40% with good flow. LAD is a good caliber vessel, gives off a large diagonal branch in the midportion, several septal branches, but the mid and distal LAD is of a smaller caliber. Mid LAD that was stented is patent with a brisk flow. There is about a 40% in-stent restenosis. Left Posterior Circumflex Coronary Artery: This appears to be a codominant vessel, gives off a good-sized obtuse marginal, then there is a 50% to 55% narrowing and then it gives off 2 secondary branches including the PDA branch that comes off. The distal circumflex has minor irregularities but mid circumflex has a 55% to 60% narrowing. There are some collateral branches coming from the circumflex system, filling the distal branches of the RCA. LV pressures were not obtained. FINAL IMPRESSION: This patient has a codominant system. Left main is free of significant disease. Mid LAD that was stented has about a 40% narrowing with brisk flow. Circumflex is a fair caliber, fair distribution vessel. There is a mid 55% lesion. RCA is totally occluded after an acute marginal branch and the vein graft to the RCA could not be visualized. RECOMMENDATIONS: I am recommending evaluation by structural heart team, but most probably he will require a redo aortic valve replacement surgically. His transesophageal echo revealed severe aortic stenosis. He will also benefit at that time with a single graft to the circumflex. LAD appears to be a fairly decent caliber vessel and the flow appears to be fairly good with a 40% residual stenosis and the stent is about 10 years old. I will refer him to [facility] Structural Heart Team and will discuss further in detail with the patient and his family. MMODL / IJN: [id number] /
[2023-05-13 12:36] VITALS: PULSE 51
[2023-05-13 15:59] VITALS: BP 134/82
== END 2023-05-13 14:51 | disposition home or self-care (01) ==
LOC: CATHCVL 05:52
PROVIDERS: ATTEND Internal Medicine Interventional Cardiology
DX: I08.0 Rheumatic disorders of both mitral and aortic valves (principal); I10 Essential (primary) hypertension; I25.10 Atherosclerotic heart disease of native coronary artery without angina pectoris; I73.9 Peripheral vascular disease, unspecified; E78.5 Hyperlipidemia, unspecified; Z79.01 Long term (current) use of anticoagulants; Z79.899 Other long term (current) drug therapy; Z79.51 Long term (current) use of inhaled steroids; Z87.891 Personal history of nicotine dependence
CPT/HCPCS: 93312; 93320; 93325; 80048; 85025; 99152; C1769 ×3; C1760; C1894 ×2; J2250; J2001; J3010 ×2; J1644; Q9967 ×2; 93455

== ENCOUNTER → 2024-06-20 | Outpatient (CLI) | payer MEDICARE ==
[2024-06-20 14:48] LABS: African American GFR (CKD) 88 (>60 ml/min/1.73 sqM); Blood Urea Nitrogen 20 mg/dL (9-20); Non-African American GFR(CKD) 76 (>60 ml/min/1.73 sqM)
--- NOTE | 2024-06-20 21:39 | CT ---
EXAMINATION TYPE: CT angio abd aorta w/Runoff CT DLP: 2423.2 mGycm, Automated exposure control for dose reduction was used. DATE OF EXAM: 06/20/2024 5:23 PM COMPARISON:No direct comparisons. CLINICAL INDICATION:Male, 68 years old with history of I73.9 PERIPHERAL VASCULAR DISEASE; Poor blood circulation to left foot, pre surgical planning for left big toe. TECHNIQUE: Multiple thin slice sub-millimeter images were obtained through the abdomen, pelvis, and l ower extremities after administration of contrast. Noncontrast imaging of the abdomen and pelvis is p erformed before the administration of intravenous contrast. Patient was given Isovue 370, 100 cc intr avenously. MIPS were created on a separate workstation. FINDINGS: CTA Abdomen and pelvis: The abdominal aorta does not demonstrate aneurysmal dilatation. Ectasia of th e infrarenal abdominal aorta measuring up to 2.9 cm. Atherosclerotic plaquing is identified within th e abdominal aorta. The origins of the superior mesenteric artery, inferior mesenteric artery, and ce liac axis are widely patent. Single patent left renal artery with mild stenosis secondary to calcifie d plaque proximally. There are 2 patent right renal arteries with moderate stenosis proximally. Separ ate patent origin of the left gastric artery. Bilateral common iliac artery patent stents. Visualized bilateral common iliac arteries demonstrate moderate calcified plaque with mild to moderate stenosis of the origins of the bilateral internal and external iliac arteries which are patent. CTA Lower extremities: Right: Moderate calcified plaque involving the common femoral vein. There is moderate to high-grade s tenosis involving the distal aspect before its bifurcation secondary to calcified plaque. The superfi cial and deep femoral arteries are patent with moderate stenosis at the origin of the superficial fem oral artery secondary to calcified plaque. There is mild to moderate stenosis of the origin of the de ep femoral artery secondary to calcified plaque. The remaining superficial artery demonstrates some m ild calcified plaque more distally without evidence of significant stenosis. The popliteal artery is patent with mild calcified plaque. No significant stenosis. The tibioperoneal trunk is patent with mi ld stenosis secondary to calcified plaque. The anterior tibial artery is patent and crosses the ankle joint. The posterior tibiotalar joint is patent and crosses the ankle joint. The peroneal artery is patent and crosses the ankle joint. Left: There is high-grade stenosis with questionable short segment vascular occlusion involving the d istal common femoral artery extending to the bifurcation due to significant amount of calcified and n oncalcified plaque. The origins of the superficial femoral and deep femoral arteries are patent. Shor t segment mild stenosis involving the mid superficial femoral artery secondary to calcified plaque. T he popliteal artery is patent with a mild amount of calcified plaque without significant stenosis. Th e tibioperoneal trunk is patent with short segment moderate stenosis secondary to calcified plaque. T he anterior tibial artery is patent and crosses the ankle joint. The posterior tibial artery is paten t and crosses the ankle joint. The peroneal artery is patent and crosses the ankle joint. VISCERA: The liver, spleen, adrenal glands, kidneys, pancreas, and gallbladder are not optimally enha nced due the arterial phase utilized. LIVER: Anterior left hepatic lobe 1.6 cm cyst. GALLBLADDER AND BILE DUCTS: Unremarkable. PANCREAS: Unremarkable. SPLEEN: Unremarkable. ADRENAL GLANDS: Unremarkable. KIDNEYS AND URETERS: No evidence of hydronephrosis or renal calculus. Posterior right kidney exophyti c 2.2 cm cyst. The kidneys enhance symmetrically. PELVIS BLADDER: Unremarkable REPRODUCTIVE: Bilateral hydroceles. Mildly enlarged prostate gland measuring 5.0 cm in transverse dim ension. ABDOMEN & PELVIS STOMACH AND BOWEL: Stomach and duodenum are unremarkable. Extensive pancolonic diverticulosis. No sami rounding inflammatory changes. The appendix is within normal limits. No evidence of bowel obstruction . PERITONEUM: No evidence of pneumoperitoneum or free fluid. MUSCULOSKELETAL: No acute osseous abnormalities. Moderate multilevel degenerative disc disease. Grade 1 anterolisthesis of L4 on L5 without evidence of pars defects. Mild retrolisthesis of L2 and L3. Le ft first digit bunion deformity with degenerative changes of the first MTP joint. LYMPH NODES: No gross evidence for lymphadenopathy. SOFT TISSUE/ABDOMINAL WALL: Unremarkable SOFT TISSUES: Bronchiectasis with bilateral lower lobe posterior bronchiectasis and/or honeycombing. Cardiomegaly. Median sternotomy wires. Aortic valvular calcifications. Coronary artery calcifications and stents. IMPRESSION: 1. Atherosclerotic disease involving abdominal aorta and lower extremity vasculature as described ab ove. Distal left common femoral artery high-grade stenosis with possible short segment vascular occlu esperanza at its bifurcation. Short segment moderate to high-grade stenosis involving the distal right com mon femoral artery before its bifurcation. At least two vessels are seen crossing each ankle joint. 2. Interstitial lung disease redemonstrated. 3. Bilateral hydroceles. 4. Colonic diverticulosis without evidence for acute diverticulitis. [facility], , 06/20/2024 9:36 PM
== END | disposition home or self-care (01) ==
LOC: RADCTMAIN 14:13
PROVIDERS: ATTEND Surgery
DX: I73.9 Peripheral vascular disease, unspecified (principal); I70.0 Atherosclerosis of aorta; J84.9 Interstitial pulmonary disease, unspecified; K57.30 Diverticulosis of large intestine without perforation or abscess without bleeding; N43.3 Hydrocele, unspecified
CPT/HCPCS: 82565; 84520; 75635; 36415; Q9967